=== PATIENT | male | born 1955 | race Caucasian/White ===

== ENCOUNTER → 2024-02-21 08:04 | Outpatient (REF) | payer OTHER, SELFPAY | LOC: HWRAD 08:04 | PROVIDERS: ATTENDING PHYSICIAN Family Medicine | DX: E78.5 Hyperlipidemia, unspecified (principal); E11.9 Type 2 diabetes mellitus without complications | CPT/HCPCS: 75571 ==

== ENCOUNTER → 2024-05-17 09:44 | Outpatient (REF) | payer OTHER, SELFPAY | LOC: MRI 3T 09:44 | PROVIDERS: ATTENDING PHYSICIAN Specialist; PRIMARYCARE PHYSICIAN Family Medicine | DX: R97.20 Elevated prostate specific antigen [PSA] (principal); N40.3 Nodular prostate with lower urinary tract symptoms | CPT/HCPCS: 72197; A9575 ==